=== PATIENT | male | born 1955 | race African-American/Black ===

== ENCOUNTER 2018-01-04 12:38 | Inpatient (IN) | payer BC ==
[~2018-01-04] VITALS: Ht 175.3 cm; Wt 127.9 kg
[2018-01-04] MEDS ORDERED: HYDROcodone/APAP 5 MG/325 MG (LORTAB) TAB PO PRN (15:15)
[2018-01-04] MEDS ORDERED: ONDANSETRON 4 MG (ZOFRAN) ORAL DISSOLVE TAB PO PRN (15:15)
--- NOTE | 2018-01-04 15:53 | Physical Therapy Evaluation ---
PT Evaluation-General Medical Diagnosis Admission Date 01/04/18 Medical Diagnosis: CVA Onset Date: Jan 01, 2018 Therapy Diagnosis Therapy Diagnosis: impaired mobility, strength, endurance, balance Precautions Precautions/Isolations: Standard Precautions Referral Physician: Kamar Reason for Referral: Evaluation/Treatment Medical History Additional Medical History PAST MEDICAL HISTORY: Hypertension, hyperlipidemia, type 2 diabetes mellitus. Case was discussed with Dr. Galvin by referring hospitalist this day. PAST SURGICAL HISTORY: Hernia repair, umbilicus, patella and shoulder surgery. Reviewed History: Yes Social History Home: Single Level Current Living Status: Alone Entry Into Home: Level Entry Prior/Core FIM Prior Level of Function Functional [place] Measure 0=Not Assessed/NA 4=Minimal Assistance 1=Total Assistance 5=Supervision or Setup 2=Maximal Assistance 6=Modified [place] 3=Moderate Assistance 7=Complete [place] Bed Mobility: 7 Transfers (B,C,W/C) (FIM): 7 Gait: 7 PT Evaluation-Current Subjective Patient just gets to the floor with family transport. Patient has no complaints of pain. Pt/Family Goals none stated Objective Patient Orientation: Person, Unable to Assess ROM/Strength ROM Lower Extremities WNL Strenght Lower Extremities 4+/5 gross bilateral lower extremities Neuromuscular (Tone, Coordination, Reflexes) NT Sensory Vision: Functional Hearing: Impaired Sensation Right Lower Extremit: Intact Sensation Left Lower Extremity: Intact Transfers Functional [place] Measure 0=Not Assessed/NA 4=Minimal Assistance 1=Total Assistance 5=Supervision or Setup 2=Maximal Assistance 6=Modified [place] 3=Moderate Assistance 7=Complete IndependenceIRFPAI Quality Coding Scale 6 Independent with activity with or without an assistive device 5 Patient requires set up or clean up by helper. Patient completes activity by themselves 4 Supervision or touching assist (CGA). [place] provide cues , steadying assist 3 The helper provides less than half the effort to complete the activity 2 The helper provides more than half the effort to complete the activity 1 Dependent. The helper does all the effort to complete an activity 7 Patient refused to complete or attempt activity 9 The patient did not perform the activity before the current illness or injury 88 Not attempted due to Medical conditions or safety concerns Transfers (B, C, W/C) (FIM): 5 Scootin Rollin Roll Left to Right (QC): 4 Supine to/from Sit: 5 Sit to/from Stand: 5 Sit to Lying (QC): 4 Lying to Sitting/Side of Bed(Q: 4 Sit to Stand (QC): 4 Chair/Bun-zz-Gxdgb Xfer(QC): 4 Car Transfer (QC): 4 Patient performs all bed mobility and transfers with SBA including car transfer. Gait Does the Patient Walk?: Yes Mode of Locomotion: Walk Anticipated Mode of Locomotion: Walk Gait (FIM): 5 Walk 10 feet (QC): 4 Walk 50 ft with 2 Turns(QC): 4 Walk 150 ft (QC): 4 Walking 10ft/uneven surface-QC: 4 Distance: 200' Gait Level of Assist: 5 Gait Persons Needed: 1 Gait Assistive Device: None Comments/Gait Description Patient can ambulate 200' without an assistive device with SBA, including 50' with at least 2 turns of 90 degrees and 10' over an uneven surface. Wheelchair Training Does the Pt Use a Wheelchair?: No Stairs Stairs (FIM): 2 #of Steps: 4 Level of Assist: 4 1 Step (curb) (QC): 4 4 Steps (QC): 4 Patient goes up and down the stairs quickly and needs cues to slow down. Balance Sitting Static: Normal Sitting Dynamic: Normal Standing Static: Good Standing Dynamic: Good Picking up an Object (QC): 4 (SBA) Assessment/Needs Patient has impaired speech, minor impairments in functional mobility post CVA. Rehab Potential: Good PT Short Term Goals Short Term Goals Time Frame: Jan 11, 2018 Transfers (B,C,W/C) (FIM): 6 Gait (FIM): 5 Gait Distance Comment: 500' Gait Level of Assist: 5 Gait Assistive Device: None PT Fdc Goals Fdc Goals PT Fdc Goals Time Frame: Jan 25, 2018 Transfers (B,C,W/C) (FIM): 7 Sit to Lying (QC): 6 Lying-Sitting on Side/Bed(QC): 6 Sit to Stand (QC): 6 Rollin Roll Left to Right (QC): 6 Chair/Eey-ro-Rfxeg Xfer(QC): 6 Car Transfer (QC): 6 Gait (FIM): 7 Distance: 1000' Walk 10 feet (QC): 6 Walk 10ft-Uneven Surface(QC): 6 Walk 50ft with 2 Turns (QC): 6 Walk 150 ft (QC): 6 Gait Assistive Device: None Stairs (FIM): 6 # of Steps: 12 1 Step (curb) (QC): 6 4 Steps (QC): 6 12 Steps (QC): 6 Picking up an Object (QC): 6 PT Plan Problem List Problem List: Activity Tolerance, Functional Strength, Safety, Balance, Gait, Transfer, Bed Mobility Treatment/Plan Treatment Plan: Continue Plan of Care Treatment Plan: Bed Mobility, Education, Functional Activity [place], Functional Strength, Group Therapy, Gait, Safety, Therapeutic Exercise, Transfers Treatment Duration: Jan 25, 2018 Frequency: At least 5 of 7 days/Wk (IRF) Estimated Hrs Per Day: 1.5 hours per day Patient and/or Family Agrees t: Yes Safety Risks/Education Patient Education: Gait Training, Transfer Techniques, Steps, Correct Positioning, Disease Process, Safety Issues Teaching Recipient: Patient Teaching Methods: Demonstration, Discussion Response to Teaching: Reinforcement Needed Discharge Recommendations Plan Patient will perform bed mobility and transfer training, balance and endurance training, functional strengthening, stair training, gait training, and education to improve functional mobility and independence at home. Therapy D/C Recommendations: Home w/ Family Support Time/GCodes Time In: 1530 Time Out: 1545 Total Billed Treatment Time: 30 Total Billed Treatment 1 visit EVL Phil' KIRSTIE ATKINS PT Jan 04, 2018 15:53
--- NOTE | 2018-01-04 16:14 | Occupational Therapy Eval ---
OT Evaluation-General/PLF Medical Diagnosis Admission Date 01/04/18 Medical Diagnosis: CVA Onset Date: Jan 01, 2018 Therapy Diagnosis Therapy Diagnosis: decreased self care Referral Physician: Kamar Medical History Pertinent Medical History: DM, HTN Additional Medical History hyperlipidemia, TIA Reviewed History: Yes Social History Home: Single Level Current Living Status: Alone Entry Into Home: Level Entry Pt states he will not be returning to his current living situation, but does not know where he will d/c to. ADL-Prior Level of Function ADL PLOF Comments Pt has some difficulty with expression, impacting ability to provide PLOF. Pt states he lives alone and is independent with self care and mobility. 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 OT Current Status Subjective Pt agreeable to therapy. No c/o pain. Mental Status/Objective Patient Orientation: Person Current Glasses/Contacts: Yes Hearing Aids: Yes Hand Dominance: Right Upper Extremity ROM Grossly WFL Upper Extremity Coordination Intact Upper Extremity Sensation Pt reports some numbness in right hand, states he has recently had trouble with carpal tunnel ADL-Treatment ADL-Current Pt in therapy gym, performs gait to room with supervision. Pt demonstrated ability to perform toilet transfer with supervision using grab bar. Pt participated in UE assessment while seated at EOB. Pt reports being tired, would like to go to bed after session. Transfer to EOB. Pt doffed shoes without assistance. Sit to supine with modified independence. Pt resting in bed with needs met after session. Functional [place] Measure 0=Not Assessed/NA 4=Minimal Assistance 1=Total Assistance 5=Supervision or Setup 2=Maximal Assistance 6=Modified [place] 3=Moderate Assistance 7=Complete IndependenceIRFPAI Quality Coding Scale 6 Independent with activity with or without an assistive device 5 Patient requires set up or clean up by helper. Patient completes activity by themselves 4 Supervision or touching assist (CGA). [place] provide cues , steadying assist 3 The helper provides less than half the effort to complete the activity 2 The helper provides more than half the effort to complete the activity 1 Dependent. The helper does all the effort to complete an activity 7 Patient refused to complete or attempt activity 9 The patient did not perform the activity before the current illness or injury 88 Not attempted due to Medical conditions or safety concerns Toilet/Commode Transfer (FIM): 5 Toilet Transfer (QC): 5 Education OT Patient Education: Rehab process Teaching Recipient: Patient Teaching Methods: Discussion Response to Teaching: Verbalize Understanding OT Short Term Goals Short Term Goals 1=Demonstrate adherence to instructed precautions during ADL tasks. 2=Patient will verbalize/demonstrate understanding of assistive devices/ modifications for ADL. 3=Patient will improve strength/tolerance for activity to enable patient to perform ADL's. OT Assisted Goals Assisted Goals Time Frame: Jan 18, 2018 Eating (FIM): 7 Eating (QC): 6 Groomin Oral Hygiene (QC): 6 Bathing(FIM): 6 Shower/Bathe Self (QC): 6 Upper Body Dressing(FIM): 7 Upper Body Dressing (QC): 6 Lower Body Dressing(FIM): 6 Lower Body Dressing (QC): 6 On/Off Footwear (QC): 6 Toileting(FIM): 7 Toileting Hygiene (QC): 6 Toilet/Commode Transfer(FIM): 7 Toilet/Commode Transfer (QC): 6 Shower Transfer(FIM): 6 Additional Goals: 2-Verbalize Understanding, 3-ImproveStrength/[place] 1=Demonstrate adherence to instructed precautions during ADL tasks. 2=Patient will verbalize/demonstrate understanding of assistive devices/ modifications for ADL. 3=Patient will improve strength/tolerance for activity to enable patient to perform ADL's. OT Education/Plan Problem List/Assessment Assessment: Dependent Transfers, Impaired I ADL's Pt to benefit from skilled OT intervention for ADL training, transfers, strengthening, and safety education to increase level of independence and allow safe discharge. Discharge Recommendations Plan/Recommendations: Continue POC Treatment Plan/Plan of Care Treatment,Training & Education: Yes Patient would benefit from OT for education, treatment and training to promote independence in ADL's, mobility, safety and/or upper extremity function for ADL' s. Plan of Care: ADL Retraining, Functional Mobility, Group Exercise/Act as Ind, UE Funct Exercise/Act Treatment Duration: Jan 18, 2018 Frequency: At least 5 of 7 days/Wk (IRF) Estimated Hrs Per Day: 1.5 hours per day Agreement: Yes Rehab Potential: Good Time/GCodes Start Time: 15:45 Stop Time: 16:00 Total Time Billed (hr/min): 15 Billed Treatment Time 1 visit, ELLIOTT(15minutes) MICHELLE BENAVIDEZ OT Jan 04, 2018 16:14
[2018-01-04] MEDS ORDERED: INFLUENZA TRIvalent 2017-2018 0.5 ML/45 MCG SYR IM ONE (16:45)
[2018-01-04] MEDS ORDERED: PNEUMOCOCCAL VACCINE 25 MCG/0.5 ML VIAL IM ONE (16:45)
[2018-01-04 16:47] VITALS: BP 121/69
[2018-01-04] MEDS: metFORMIN 500 MG (GLUCOPHAGE) TAB PO SCH (17:46)
[2018-01-04] MEDS: IBUPROFEN 800 MG (MOTRIN) TAB PO SCH ×2 (17:46→23:21)
[2018-01-04 18:32] VITALS: BP 162/84
--- NOTE | 2018-01-04 19:18 | PM&R Post Admission Assessment ---
Post Admission Physician Asses The preadmission screen agrees with the post admission assessment that the patient is a good candidate for inpatient rehabilitation. The patient will have a comprehensive program of inpatient rehabilitation with a goal of maximizing level of functional independence prior to discharge home with family and HHC. The patient will have PT/OT ninety minutes per day, each discipline, five days a week for gait, strengthening, conditioning, balance, ADLs, any patient/family/caregiver training as necessary. Speech therapy to do cognitive,speech and swallow assessment and treat as indicated. Rehabilitation nursing to assist with bowel, bladder, skin, wound care, medication administration, pain management. Director Vaccine to assist with discharge planning, community reentry. SCD's for DVT prophylaxis. He appears to be well motivated to participate in three hours of therapy a day. He should be able to tolerate three hours of therapy a day from a medical standpoint. He should benefit from the three hours of therapy a day. He has a reasonable discharge plan, reasonable discharge rehabilitation goals and a supportive family. He has various comorbidities that need to be closely monitored with medications and treatments adjusted on a daily basis as needed. These include: HTN HLP Type2 DM Barriers to discharge for this patient who had been independent prior to this are for him to be modified independent to supervision for ADLs and mobility skills prior to discharge home with family and HHC, so as to lessen the burden of the caregivers. 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 Fall 2. Fracture 3. DVT 4. Pulmonary embolism 5. Recurrent stroke 6. Skin breakdown 7. Contractures 8. Poorly controlled pain 9. Urinary retention 10. UTI 11. Respiratory infection 12. Aspiration 13. Poorly controlled HTN 14. Poorly controlled DM Estimated Length of Stay: 18 days Prognosis: Rehab prognosis appears good for goal of discharge home with family and HHC modified independent to supervision for ADLs and mobility skills. SOFI CONNELLY MD Jan 04, 2018 19:18
--- NOTE | 2018-01-04 20:20 | HISTORY AND PHYSICAL ---
DATE OF SERVICE: CHIEF COMPLAINT: Difficulty with speech. HISTORY OF PRESENT ILLNESS: The patient is a 62-year-old male, who lives in [place], [place] and was living independently and working full time paramedic, who was admitted to [facility] on 01/01/2018 due to difficulty with speech and some confusion. He was found to have an acute stroke in the left middle cerebral artery distribution and DON territory as per MRI and CTA imaging with trace parenchymal hemorrhage. The patient was admitted to hospitalist service and seen by neurology and neurosurgery. The patient was started on a statin. Echocardiogram with bubble study revealed an intact ejection fraction with no major valvular pathology. Neurology recommended starting the patient on aspirin 81 mg per day a week after discharge as the benefits outweighed the risk for further bleed. It was also recommended that he have a sleep study. Currently, he is min assist for transfers and gait with handheld assist. He has mildly impaired dynamic standing balance. He has expressive aphasia. He is able to follow simple 1 step commands with extra time. PAST MEDICAL HISTORY: Hypertension, hyperlipidemia, type 2 diabetes mellitus. Case was discussed with Dr. Galvin by referring hospitalist this day. PAST SURGICAL HISTORY: Hernia repair, umbilicus, patella and shoulder surgery. ALLERGIES: No known medication allergies. FAMILY HISTORY: Noncontributory. SOCIAL HISTORY: Essentially as per above. REVIEW OF SYSTEMS: Ten-point review of systems significant for difficulty with speech, impaired balance. He reports some numbness in the right hand, which he relates to carpal tunnel syndrome. MEDICATIONS: Lipitor 40 mg p.o. at bedtime, ibuprofen 800 mg p.o. q.6 hours p.r.n., metformin 500 mg p.o. b.i.d., hydrocodone APAP 5 one tablet p.o. q.4 hours p.r.n. moderate pain, Zofran 4 mg p.o. q.6 hours p.r.n. nausea or vomiting. PHYSICAL EXAMINATION: GENERAL: Significant for a somewhat obese male appearing his stated age, lying in bed in no acute distress. His BMI is 41.7. VITAL SIGNS: He is afebrile, pulse is 81, respirations 16, blood pressure 162/84, O2 sat 99% on room air. HEENT: Vision and hearing appeared grossly intact. No oral lesions noted. Speech, he has expressive aphasia. NECK: Supple without mass. HEART: Regular rhythm. LUNGS: Chest is clear. ABDOMEN: Soft, nontender, bowel sounds present. EXTREMITIES: No limb edema. No calf tenderness. MUSCULOSKELETAL: He has functional active range of motion in all 4 extremities. NEUROLOGIC: He has mildly impaired hearing. Strength is 4+/5 grossly in all four limbs. Sensation is grossly intact to touch. He has expressive aphasia as per above. Difficult to assess cognition, but is able to follow simple commands with extra time. IMPRESSION: 1. Acute left middle cerebral artery distribution stroke with resulting gait imbalance and expressive aphasia. 2. Hypertension, controlled with medication. 3. Hyperlipidemia, on statin. 4. Type 2 diabetes mellitus, on metformin. PLAN: The patient will have a comprehensive program of inpatient rehabilitation with the goal of maximizing level of functional independence prior to discharge home with home health care.He is to have followup with [facility] in [place] in 1 week , so I assume that he is a . The patient will have PT, OT 5 days a week, 90 minutes per session each discipline with plan of care as per post-admission physician evaluation. Please see that separate document for details Speech therapy to do a swallow, speech, cognitive eval and treat as indicated 5 times a week for 30 to 45 minutes per day for 2 weeks. Rehabilitation nursing to assist with bowel, bladder, skin care, medication administration, pain management. patient services clerk to assist with discharge planning and community reentry. Therapy with cardiac and fall precautions. Monitor Accu-Cheks and blood pressure and adjust medications as appropriate. Routine admission labs. ESTIMATED LENGTH OF STAY: 10 to 14 days. PROGNOSIS: Rehab prognosis appears good for goal of discharging home with home health care modified independent to supervision for ADLs, mobility skills. DIET: Carb consistent. CODE STATUS: Full code. Job ID: [id number] DocumentID: [id number] Dictated Date: 01/04/2018 19:30:03 Tub Wash Operator Date: 01/04/2018 20:19:30 Dictated By: SOFI GALVIN MD [facility]
[2018-01-04] MEDS: ATORVASTATIN 40 MG (LIPITOR) TABLET PO SCH (21:18)
[2018-01-05 05:39] LABS: HEMOGLOBIN 14.1 G/DL (13.3-17.7); RED BLOOD COUNT 4.49 10^6/uL (4.35-5.85); WHITE BLOOD COUNT 7.8 10^3/uL (4.3-11.0)
[2018-01-05 06:00] VITALS: BP 148/94
[2018-01-05 06:04] LABS: ALANINE AMINOTRANSFERASE 16 U/L (0-55); ALBUMIN 3.6 GM/DL (3.2-4.5); ALKALINE PHOSPHATASE 50 U/L (40-136); BILIRUBIN,TOTAL 0.5 MG/DL (0.1-1.0); BUN/CREATININE RATIO 13; CALCIUM 8.9 MG/DL (8.5-10.1); CARBON DIOXIDE 25 MMOL/L (21-32); CHLORIDE 106 MMOL/L (98-107); CREATININE SERUM 0.86 MG/DL (0.60-1.30); GFR ESTIMATED > 60; GLUCOSE 128 MG/DL (70-105); POTASSIUM 4.1 MMOL/L (3.6-5.0); SODIUM 138 MMOL/L (135-145)
[2018-01-05] MEDS: metFORMIN 500 MG (GLUCOPHAGE) TAB PO SCH ×2 (06:31→17:16)
[2018-01-05] MEDS: IBUPROFEN 800 MG (MOTRIN) TAB PO SCH ×4 (06:31→23:51)
--- NOTE | 2018-01-05 08:51 | Physical Therapy Daily Note ---
PT Daily Note-Current Subjective Pt. furrows his brow and states hes not sure why he is being seen by PT b/c he "just needs someone to work with me on my speech". Pt. also indicates he wears a hearing aide on the left ear and needs a new battery. States he can hear decent on his right . States he works in [place] at [employer]. Agrees to Rx after some education and explanation Pain Numeric Pain Scale: 0-No Pain Mental Status Patient Orientation: Person, Place, Time, Situation, Normal For Age Attachments: Other-See Comments Transfers Functional [place] Measure 0=Not Assessed/NA 4=Minimal Assistance 1=Total Assistance 5=Supervision or Setup 2=Maximal Assistance 6=Modified [place] 3=Moderate Assistance 7=Complete IndependenceIRFPAI Quality Coding Scale 6 Independent with activity with or without an assistive device 5 Patient requires set up or clean up by helper. Patient completes activity by themselves 4 Supervision or touching assist (CGA). [place] provide cues , steadying assist 3 The helper provides less than half the effort to complete the activity 2 The helper provides more than half the effort to complete the activity 1 Dependent. The helper does all the effort to complete an activity 7 Patient refused to complete or attempt activity 9 The patient did not perform the activity before the current illness or injury 88 Not attempted due to Medical conditions or safety concerns Transfers (B, C, W/C) (FIM): 7 Scootin Rollin Roll Left to Right (QC): 7 Supine to/from Sit: 7 Sit to/from Stand: 7 Sit to Lying (QC): 7 Sit to Stand (QC): 7 Chair/Wjy-si-Qbcwv Xfer(QC): 7 Bed to/from Chair: 7 Car Transfer (QC): 7 floor TRF indep Gait Training Does the Patient Walk?: Yes Gait (FIM): 7 Distance (FIM): 3=150 ft (200x2) Walk 10 feet (QC): 7 Walk 50 ft with 2 Turns(QC): 7 Walk 150 ft (QC): 7 Walking 10ft/uneven surface-QC: 7 Gait Level of Assist: 7 Gait Persons Needed: 0 Gait Assistive Device: None side stepping at rapid pace left and right , retro and braiding left and right, some difficulty with braiding to weft that appears possible slight coordination issue, but NO LOB Stair Training Stair Training: Handrails/: No handrail Stairs (FIM): 7 #of Steps: 12 1 Step (curb) (QC): 7 4 Steps (QC): 7 12 Steps (QC): 7 Stairs: Pattern: Reciprocal Level of Assist: 7 Balance Picking up an Object (QC): 7 Special Test Comments RAMON tested at 56/56 Exercises Supine Ex: Bridging, Rolling, Scooting Supine Reps: 5 Standing: Dynamic Reaching Ex Neuromuscular see above Treatments quadruped, crawling and tall on knees with perturbations with no LOB Assessment Current Status: Excellent Progress no real communication issues . Pt. responded accurately 100% of time, often slowly, unless he could not hear this ASBESTOS MICROSCOPIST clearly secondary to hearing loss PT Short Term Goals Short Term Goals Time Frame: Jan 11, 2018 Transfers (B,C,W/C) (FIM): 6 Gait (FIM): 5 Gait Distance Comment: 500' Gait Level of Assist: 5 Gait Assistive Device: None PT Steeping Press Operator Goals Steeping Press Operator Goals PT Group Home Goals Time Frame: Jan 25, 2018 Transfers (B,C,W/C) (FIM): 7 Sit to Lying (QC): 6 Lying-Sitting on Side/Bed(QC): 6 Sit to Stand (QC): 6 Rollin Roll Left to Right (QC): 6 Chair/Zcl-dg-Hrvsj Xfer(QC): 6 Car Transfer (QC): 6 Gait (FIM): 7 Distance: 1000' Walk 10 feet (QC): 6 Walk 10ft-Uneven Surface(QC): 6 Walk 50ft with 2 Turns (QC): 6 Walk 150 ft (QC): 6 Gait Assistive Device: None Stairs (FIM): 6 # of Steps: 12 1 Step (curb) (QC): 6 4 Steps (QC): 6 12 Steps (QC): 6 Picking up an Object (QC): 6 PT Plan Treatment/Plan Treatment Plan: Continue Plan of Care Treatment Plan: Bed Mobility, Education, Functional Activity [place], Functional Strength, Group Therapy, Gait, Safety, Therapeutic Exercise, Transfers Treatment Duration: Jan 25, 2018 Frequency: At least 5 of 7 days/Wk (IRF) Estimated Hrs Per Day: 1.5 hours per day Patient and/or Family Agrees t: Yes Safety Risks/Education Patient Education: Gait Training, Transfer Techniques, Steps, Correct Positioning, Safety Issues Teaching Recipient: Patient Teaching Methods: Demonstration, Discussion Response to Teaching: Verbalize Understanding, Return Demonstration discussed CVA and speech etc, expectations of rehab etc Time/GCodes Time In: 800 Time Out: 845 Total Billed Treatment Time: 45 Total Billed Treatment 1,GT10m,NM35m G Codes Necessary: LAKISHA Craft ASBESTOS MICROSCOPIST Jan 05, 2018 08:51
--- NOTE | 2018-01-05 09:18 | PM & R (SOAP) Progress Note ---
Subjective Time Seen by Provider: 08:35 Subjective/Events-last exam Patient was seen in his room this AM Patient CGA for gait without gait aide.Primary deficit is speech ST to see re aphasia Review of Systems Neurological: Change in speech Objective Exam Last Set of Vital Signs Vital Signs Date Time Temp Pulse Resp B/P (MAP) Pulse Ox O2 Delivery O2 Flow Rate FiO2 01/05/18 06:00 96.4 61 18 148/94 (112) 100 Room Air Capillary Refill : I&O Intake and Output 01/05/18 00:00 Intake Total 200 ml Balance 200 ml Intake Oral 200 ml # Voids 1 Daily Weight Change No General: Alert, Cooperative, No Acute Distress HEENT: Atraumatic, PERRLA, EOMI, Mucous Memb Moist/[place] Neck: Supple, No JVD Lungs: Clear to Auscultation Heart: Regular Rate Abdomen: Normal Bowel Sounds, Soft, No Tenderness Extremities: No Edema Neuro: Other (Expressive aphasia) Results Lab Laboratory Tests 01/04/18 16:44: Glucometer 163H 01/05/18 05:05: Glucometer 120H 01/05/18 05:18: White Blood Count 7.8, Red Blood Count 4.49, Hemoglobin 14.1, Hematocrit 40, Mean Corpuscular Volume 88, Mean Corpuscular Hemoglobin 31, Mean Corpuscular Hemoglobin Concent 36, Red Cell Distribution Width 12.0, Platelet Count 261, Mean Platelet Volume 9.0, Sodium Level 138, Potassium Level 4.1, Chloride Level 106, Carbon Dioxide Level 25, Anion Gap 7, Blood Urea Nitrogen 11, Creatinine 0.86, Estimat Glomerular Filtration Rate > 60, BUN/Creatinine Ratio 13, Glucose Level 128H, Calcium Level 8.9, Total Bilirubin 0.5, Aspartate Amino Transf (AST/ SGOT) 16, Alanine Aminotransferase (ALT/SGPT) 16, Alkaline Phosphatase 50, Total Protein 6.0L, Albumin 3.6 Assessment/Plan Assessment Left MCA distribution stroke with aphasia and gait imbalance HTN controlled HLP on statin Type 2 DM on Metformin Plan Continue PT/OT ST to assess Monitor accucheks and adjust meds as needed Team Conference next week 01-10-18 SW to check on home support system patient has SOFI CONNELLY MD Jan 05, 2018 09:18
[2018-01-05] MEDS ORDERED: AMLO10TA2 PO (10:46)
[2018-01-05] MEDS ORDERED: ASPI-999 PO (10:46)
[2018-01-05] MEDS ORDERED: METF500T8 PO (10:46)
--- NOTE | 2018-01-05 11:08 | Occupational Ther Daily Note ---
OT Current Status-Daily Note Subjective Pt sitting in chair, agrees to treatment. Pt has no c/o pain. Mental Status/Objective Functional [place] Measure 0=Not Assessed/NA 4=Minimal Assistance 1=Total Assistance 5=Supervision or Setup 2=Maximal Assistance 6=Modified [place] 3=Moderate Assistance 7=Complete Door ADL-Treatment Pt agreeable to shower this morning. Pt retrieved clothing from closet without assistance. Gait to restroom without assistive device, no LOB noted. Pt completed toileting standing at toilet with modified independence. Doff clothing without assistance. Pt transferred to shower with modified independence. Pt able to complete bathing tasks after set up. Don shirt with modified independence. Pt donned pants with modified independence. Don shoes and socks without assistance. Pt stood at sink to brush teeth with modified independence. Functional [place] Measure 0=Not Assessed/NA 4=Minimal Assistance 1=Total Assistance 5=Supervision or Setup 2=Maximal Assistance 6=Modified [place] 3=Moderate Assistance 7=Complete IndependenceIRFPAI Quality Coding Scale 6 Independent with activity with or without an assistive device 5 Patient requires set up or clean up by helper. Patient completes activity by themselves 4 Supervision or touching assist (CGA). [place] provide cues , steadying assist 3 The helper provides less than half the effort to complete the activity 2 The helper provides more than half the effort to complete the activity 1 Dependent. The helper does all the effort to complete an activity 7 Patient refused to complete or attempt activity 9 The patient did not perform the activity before the current illness or injury 88 Not attempted due to Medical conditions or safety concerns Grooming (FIM): 6 Oral Hygiene (QC): 6 Bathing (FIM): 5 Shower/Bathe Self (QC): 5 Upper Body (FIM): 6 Upper Body Dressing (QC): 6 Lower Body Dressing (FIM): 6 Lower Body Dressing (QC): 6 On/Off Footwear (QC): 6 Toileting (FIM): 6 Shower Transfer(FIM): 6 Other Treatment Gait to therapy gym without assistive device, no LOB noted. Arm bike [id number] to increase overall strength and activity tolerance needed for ADLs and transfers. Pt completed task with moderate resistance and steady pace. No rest breaks needed. Pt completed grooved pegboard fine motor task with right hand to increase coordination skills. Pt occasionally drops peg, but is able to complete task without assistance. Pt returned to room, sitting in chair with needs met after session. OT Short Term Goals Short Term Goals Transfers (B,C,W/C) (FIM): 6 1=Demonstrate adherence to instructed precautions during ADL tasks. 2=Patient will verbalize/demonstrate understanding of assistive devices/ modifications for ADL. 3=Patient will improve strength/tolerance for activity to enable patient to perform ADL's. OT Fci Goals Fci Goals Time Frame: Jan 18, 2018 Eating (FIM): 7 Eating (QC): 6 Groomin Oral Hygiene (QC): 6 Bathing(FIM): 6 Shower/Bathe Self (QC): 6 Upper Body Dressing(FIM): 7 Upper Body Dressing (QC): 6 Lower Body Dressing(FIM): 6 Lower Body Dressing (QC): 6 On/Off Footwear (QC): 6 Toileting(FIM): 7 Toileting Hygiene (QC): 6 Toilet/Commode Transfer(FIM): 7 Toilet/Commode Transfer (QC): 6 Shower Transfer(FIM): 6 Additional Goals: 2-Verbalize Understanding, 3-ImproveStrength/[place] 1=Demonstrate adherence to instructed precautions during ADL tasks. 2=Patient will verbalize/demonstrate understanding of assistive devices/ modifications for ADL. 3=Patient will improve strength/tolerance for activity to enable patient to perform ADL's. OT Education/Plan Discharge Recommendations Plan/Recommendations: Continue POC Treatment Plan/Plan of Care Patient would benefit from OT for education, treatment and training to promote independence in ADL's, mobility, safety and/or upper extremity function for ADL' s. Plan of Care: ADL Retraining, Functional Mobility, Group Exercise/Act as Ind, UE Funct Exercise/Act Treatment Duration: Jan 18, 2018 Frequency: At least 5 of 7 days/Wk (IRF) Estimated Hrs Per Day: 1.5 hours per day Agreement: Yes Rehab Potential: Good Time/GCodes Start Time: 09:00 Stop Time: 10:00 Total Time Billed (hr/min): 60 Billed Treatment Time 1 visit, ADLx3(40minutes), EX(20minutes) MICHELLE BENAVIDEZ OT Jan 05, 2018 11:08
--- NOTE | 2018-01-05 11:38 | ST Cognitive Linguistic Eval ---
Speech Evaluation-General Medical Diagnosis CVA Onset Date: Jan 01, 2018 Therapy Diagnosis Therapy Diagnosis: Moderate Expressive Aphasia, Mild Receptive Aphasia Precautions Precautions/Isolations: Standard Precautions Referral Referring Physician: Dr. Jacek Galvin Reason for Referral: Evaluation/Treatment Speech and Language Evaluation Medical History Pertinent Medical History: DM, HTN Current History The patient was recently admitted to [facility] from an outside facility following a left MCA stroke. Reviewed History: Yes Social History Current Living Status: Alone Speech PLF-Current Status Prior Level of Function The patient denied prior challenges with speech, language or cognition. Subjective The patient was seated upright in chair upon entrance. The patient greeted the clinician appropriately and was agreeable to participation in the speech and language evaluation. To note, the patient complete route, common conversation (greetings, etc.) appropriately. Language Eval: Auditory Comprehends Simple Yes/No Ques: Mild (The patient is able to respond accurately to simple yes and no, however, the patient requires increased prompting and time to respond accurately to complex yes and no.) Indent/Objects Multiple Knowles: Functional Ident/Pics in Multiple Knowles: Functional Follows 1-Step Commands: Functional Follows Complex Directions: Moderate (The patient demonstrates moderate difficulty following simple, multi-step commands. ) Follows General Conversations: Mild To note, the patient does have a hearing deficit. The patient hears better on the right. Language Eval: Verbal Language Completes Spontaneous Greeting: Functional Produces Auto, Serial Info: Functional Imitates Simple Words/Phrases: Functional Word Finding: Moderate Requests Basic Needs: Functional States Basic Personal Info: Moderate (The patient demonstrates difficulty stating date of . With moderate clinician verbal cueing, the patient is able to accurately identify the year of his , as well as, his age.) Expresses Complex Ideas: Severe Language Evaluation: Reading Comprehends Single Nouns: Mild Language Evaluation: Writing Writes Personal Information: Mild (The patient is able to write his name on this date. Per patient, this is something he could not accomplish the day prior. ) Cognitive Patient Orientation The patient is oriented to month, day of week, and year, however, due to paraphasia and word-finding requires information to be provided in yes and no format, as well as, initial phonemic cues. Objective Cognitive Domain Attention: WNL Memory: Mild Problem Solving: Functional Clock Drawing Severity Rating: Severe (The patient was unable to draw a clock for the clinician and stated, "I don't know how to write the numbers.") Objective Impression The patient demonstrated moderate expressive aphasia characterized by word- finding deficits, as well as, mild receptive aphasia. At this time, the patient additionally has difficulty writing to simple dictation, as well as, automatic sequences. Communication/Social Cognition Comprehension: 3 Expression: 2 Social Interaction: 6 Problem Solvin Memory: 4 Speech Patient Assess Expression of Ideas/Wants: Rarely/Never (1) Understanding [place] Content: Sometimes Understands(2) Brief Interview-Mental Status: Yes Repetition of Three Words: Three (3) Temporal Orientation: Year: Correct (3) Temporal Orientation: Month: Accurate within 5 days(2) Temporal Orientation: Day: Correct (1) Recall : Wear to say "Sock": Yes,after cueing (1) Recall : Color: Yes, no cue required (2) Recall : Bed: Yes, no cue required (2) Speech Short Term Goals Short Term Goals Short Term Goals 1. The patient will copy short phrases with mild clinician verbal prompting. 2. The patient will identify letters and numbers (1-10) with 80% accuracy and mild clinician verbal prompting. 3. The patient will state simple orientation information with 80% accuracy and mild clinician verbal prompting. Time Frame-STG: One Week Speech Retirement Goals Retirement Goals 1. The patient will demonstrate improved expressive communication for increased safety and function with ADL's. Time Frame: Two Weeks Comprehension: 4 Expression: 3 Social Interaction: 6 Problem Solvin Memory: 4 Speech-Plan Treatment Plan Speech Therapy Treatment Plan: Continue Plan of Care Continue skilled speech pathology to target functional communication ( expressive and receptive). Treatment Duration: Jan 19, 2018 Frequency: 5 times per week Estimated Hrs Per Day: .5 hour per day Rehab Potential: Fair Safety Risks/Education Teaching Recipient: Patient Teaching Methods: Discussion Response to Teaching: Verbalize Understanding Education Topics Provided: The patient was encouraged to practice writing his name, as well as, reading aloud. Results and recommendations were shared and discussed with the patient. Time Speech Therapy Time In: 10:00 Speech Therapy Time Out: 10:30 Total Billed Time: 30 Billed Treatment Time 1CHRISTINSUNSHINECATHY SHAH Jan 05, 2018 11:38
--- NOTE | 2018-01-05 14:39 | Therapy Group Daily Note ---
Therapy Daily Group Note Patient Education Topic Other List Below (the 5 senses) Other/Notes Pt. participated in PT OT group this date. Pts. introduced selves and shared their favorite smell, taste or sight. Pt. amb[place] [facility] Pts. were educated RE: Acute Rehab purpose and practices . Pts. contributed during education re: the 5 senses, how they diminish, how to manage this as well as activities in stereognition (items in pillow case to feel and name) and sound recognition (recordings of different sounds to ID). Pt. to room to bed after group with noonan at hand Start Time: 13:00 Stop Time: 14:15 Total Billed Treatment Time: 75 Total Billed Treatment 1,GRP LAKISHA VELAZQUEZ WAD LUBRICATOR Jan 05, 2018 14:39
[2018-01-05] MEDS ORDERED: DICL75TA2 PO (15:00)
[2018-01-05 18:10] VITALS: BP 136/74
[2018-01-05] MEDS: ATORVASTATIN 40 MG (LIPITOR) TABLET PO SCH (20:33)
[2018-01-06 05:25] VITALS: BP 143/75
[2018-01-06] MEDS: IBUPROFEN 800 MG (MOTRIN) TAB PO SCH ×4 (06:19→19:47)
[2018-01-06] MEDS: metFORMIN 500 MG (GLUCOPHAGE) TAB PO SCH ×2 (06:19→17:24)
--- NOTE | 2018-01-06 10:44 | Physical Therapy Progress Note ---
Therapy Progress Note Patient is up independently in room and lobby area. PT requested patient participate with PT with exercise and outside gait training, however, patient adamantly declined stating, "I want to take a shower and I can walk by myself." PT attempted to encourage patient to participate, however, continued to decline therapy on this date. RN notified. 1 ref PARTH ROJO PT Jan 06, 2018 10:44
--- NOTE | 2018-01-06 12:52 | Occupational Ther Daily Note ---
OT Current Status-Daily Note Subjective Pt seen in room, up in bed, agreeable to OT. No pain mentioned. Appearance Alert, cooperative. Mental Status/Objective Functional [place] Measure 0=Not Assessed/NA 4=Minimal Assistance 1=Total Assistance 5=Supervision or Setup 2=Maximal Assistance 6=Modified [place] 3=Moderate Assistance 7=Complete [place] ADL-Treatment Functional [place] Measure 0=Not Assessed/NA 4=Minimal Assistance 1=Total Assistance 5=Supervision or Setup 2=Maximal Assistance 6=Modified [place] 3=Moderate Assistance 7=Complete IndependenceIRFPAI Quality Coding Scale 6 Independent with activity with or without an assistive device 5 Patient requires set up or clean up by helper. Patient completes activity by themselves 4 Supervision or touching assist (CGA). [place] provide cues , steadying assist 3 The helper provides less than half the effort to complete the activity 2 The helper provides more than half the effort to complete the activity 1 Dependent. The helper does all the effort to complete an activity 7 Patient refused to complete or attempt activity 9 The patient did not perform the activity before the current illness or injury 88 Not attempted due to Medical conditions or safety concerns Other Treatment Pt has difficulty with word finding and asked about speech therapy. He said, "Now I understand why she gave me...homework [OT cues for this word)". Pt walked to and from gym without AD or assistance (at least 300 feet). In gym, pt did 15 reps bilat UE exercise with 3# weight. He needed some visual and occasional physical assistance to do the exercises correctly. He was generally able to track repetitions himself. Exercises for coordination and strengthening , as well as problem solving and motor planning. At end of tx, he reported that he liked doing the exercises. Pt returned to room, up in recliner, all needs met. Education OT Patient Education: Exercise program, Purpose of tx/functional activities Teaching Recipient: Patient Teaching Methods: Demonstration, Discussion Response to Teaching: Return Demonstration, Reinforcement Needed OT Short Term Goals Short Term Goals Transfers (B,C,W/C) (FIM): 6 1=Demonstrate adherence to instructed precautions during ADL tasks. 2=Patient will verbalize/demonstrate understanding of assistive devices/ modifications for ADL. 3=Patient will improve strength/tolerance for activity to enable patient to perform ADL's. OT Alf Goals Alf Goals Time Frame: Jan 18, 2018 Eating (FIM): 7 Eating (QC): 6 Groomin Oral Hygiene (QC): 6 Bathing(FIM): 6 Shower/Bathe Self (QC): 6 Upper Body Dressing(FIM): 7 Upper Body Dressing (QC): 6 Lower Body Dressing(FIM): 6 Lower Body Dressing (QC): 6 On/Off Footwear (QC): 6 Toileting(FIM): 7 Toileting Hygiene (QC): 6 Toilet/Commode Transfer(FIM): 7 Toilet/Commode Transfer (QC): 6 Shower Transfer(FIM): 6 Comprehension(FIM): 4 Expression (FIM): 3 Social Interaction(FIM): 6 Problem Solving(FIM): 4 Memory(FIM): 4 Additional Goals: 2-Verbalize Understanding, 3-ImproveStrength/[place] 1=Demonstrate adherence to instructed precautions during ADL tasks. 2=Patient will verbalize/demonstrate understanding of assistive devices/ modifications for ADL. 3=Patient will improve strength/tolerance for activity to enable patient to perform ADL's. OT Education/Plan Discharge Recommendations Plan/Recommendations: Continue POC Treatment Plan/Plan of Care Patient would benefit from OT for education, treatment and training to promote independence in ADL's, mobility, safety and/or upper extremity function for ADL' s. Plan of Care: ADL Retraining, Functional Mobility, Group Exercise/Act as Ind, UE Funct Exercise/Act Treatment Duration: Jan 18, 2018 Frequency: At least 5 of 7 days/Wk (IRF) Estimated Hrs Per Day: 1.5 hours per day Agreement: Yes Rehab Potential: Fair Time/GCodes Start Time: 11:30 Stop Time: 12:00 Total Time Billed (hr/min): 30 Billed Treatment Time visit, 30 minutes exercise ENA RODRIGUEZ OT Jan 06, 2018 12:52
[2018-01-06 17:46] VITALS: BP 156/83
[2018-01-06] MEDS: ATORVASTATIN 40 MG (LIPITOR) TABLET PO SCH (20:27)
[2018-01-07 05:46] VITALS: BP 134/83
[2018-01-07] MEDS: metFORMIN 500 MG (GLUCOPHAGE) TAB PO SCH ×2 (06:06→16:11)
[2018-01-07] MEDS: IBUPROFEN 800 MG (MOTRIN) TAB PO SCH ×4 (12:37→19:58)
[2018-01-07 17:49] VITALS: BP 150/79
[2018-01-07] MEDS: ATORVASTATIN 40 MG (LIPITOR) TABLET PO SCH (19:55)
[2018-01-08 05:33] VITALS: BP 134/81
[2018-01-08] MEDS: metFORMIN 500 MG (GLUCOPHAGE) TAB PO SCH ×2 (06:02→16:47)
[2018-01-08] MEDS: IBUPROFEN 800 MG (MOTRIN) TAB PO SCH ×3 (09:54→23:24)
--- NOTE | 2018-01-08 09:57 | Occupational Ther Daily Note ---
OT Current Status-Daily Note Subjective Pt alert, sitting in recliner. Pt agreed to therapy. No c/o pain at this time. Pt adamantly refused to complete arm bike and OLIVIER had a difficult time getting pt to realize that he did not have to do arm bike. When pt realized that he was doing other things for therapy he was agreeable to therapy. Mental Status/Objective Patient Orientation: Person, Place, Time, Situation Functional [place] Measure 0=Not Assessed/NA 4=Minimal Assistance 1=Total Assistance 5=Supervision or Setup 2=Maximal Assistance 6=Modified [place] 3=Moderate Assistance 7=Complete [place] ADL-Treatment Pt had already cleaned up and dressed prior to OT. Pt declined any ADLs. Functional [place] Measure 0=Not Assessed/NA 4=Minimal Assistance 1=Total Assistance 5=Supervision or Setup 2=Maximal Assistance 6=Modified [place] 3=Moderate Assistance 7=Complete IndependenceIRFPAI Quality Coding Scale 6 Independent with activity with or without an assistive device 5 Patient requires set up or clean up by helper. Patient completes activity by themselves 4 Supervision or touching assist (CGA). [place] provide cues , steadying assist 3 The helper provides less than half the effort to complete the activity 2 The helper provides more than half the effort to complete the activity 1 Dependent. The helper does all the effort to complete an activity 7 Patient refused to complete or attempt activity 9 The patient did not perform the activity before the current illness or injury 88 Not attempted due to Medical conditions or safety concerns Other Treatment Pt completed 15 UE exercises with resistance, 1 set 30 reps each. Exercises completed to increase UE gross motor, pinch/group controller and fine motor for daily functional tasks. Pt tolerated exercises well, stated that his UE were fatigued after therapy. 3# wt for hand/wrist exercises, 6# wt for UE gross motor exercises and medium resistance theraband. After therapy, pt sitting in recliner in room. Pt up ad kenya in room. All needs met in room. OT Short Term Goals Short Term Goals Transfers (B,C,W/C) (FIM): 6 1=Demonstrate adherence to instructed precautions during ADL tasks. 2=Patient will verbalize/demonstrate understanding of assistive devices/ modifications for ADL. 3=Patient will improve strength/tolerance for activity to enable patient to perform ADL's. OT Group Home Goals Cardiovascular Surgeon Goals Time Frame: Jan 18, 2018 Eating (FIM): 7 Eating (QC): 6 Groomin Oral Hygiene (QC): 6 Bathing(FIM): 6 Shower/Bathe Self (QC): 6 Upper Body Dressing(FIM): 7 Upper Body Dressing (QC): 6 Lower Body Dressing(FIM): 6 Lower Body Dressing (QC): 6 On/Off Footwear (QC): 6 Toileting(FIM): 7 Toileting Hygiene (QC): 6 Toilet/Commode Transfer(FIM): 7 Toilet/Commode Transfer (QC): 6 Shower Transfer(FIM): 6 Comprehension(FIM): 4 Expression (FIM): 3 Social Interaction(FIM): 6 Problem Solving(FIM): 4 Memory(FIM): 4 Additional Goals: 2-Verbalize Understanding, 3-ImproveStrength/[place] 1=Demonstrate adherence to instructed precautions during ADL tasks. 2=Patient will verbalize/demonstrate understanding of assistive devices/ modifications for ADL. 3=Patient will improve strength/tolerance for activity to enable patient to perform ADL's. OT Education/Plan Discharge Recommendations Plan/Recommendations: Continue POC Treatment Plan/Plan of Care Patient would benefit from OT for education, treatment and training to promote independence in ADL's, mobility, safety and/or upper extremity function for ADL' s. Plan of Care: ADL Retraining, Functional Mobility, Group Exercise/Act as Ind, UE Funct Exercise/Act Treatment Duration: Jan 18, 2018 Frequency: At least 5 of 7 days/Wk (IRF) Estimated Hrs Per Day: 1.5 hours per day Agreement: Yes Rehab Potential: Fair Time/GCodes Start Time: 09:15 Stop Time: 10:00 Total Time Billed (hr/min): 45 Billed Treatment Time 1 visit-EX 3 (45 min) ROBERT MCGRAW Jan 08, 2018 09:57
--- NOTE | 2018-01-08 12:02 | Physical Therapy Daily Note ---
PT Daily Note-Current Subjective Patient in recliner pre tx, agrees to PT, no complaints of pain. Appearance Patient in recliner post tx, has nurse call, phone, tray, all needs met. Mental Status Patient Orientation: Person, Unable to Assess Transfers Functional [place] Measure 0=Not Assessed/NA 4=Minimal Assistance 1=Total Assistance 5=Supervision or Setup 2=Maximal Assistance 6=Modified [place] 3=Moderate Assistance 7=Complete IndependenceIRFPAI Quality Coding Scale 6 Independent with activity with or without an assistive device 5 Patient requires set up or clean up by helper. Patient completes activity by themselves 4 Supervision or touching assist (CGA). [place] provide cues , steadying assist 3 The helper provides less than half the effort to complete the activity 2 The helper provides more than half the effort to complete the activity 1 Dependent. The helper does all the effort to complete an activity 7 Patient refused to complete or attempt activity 9 The patient did not perform the activity before the current illness or injury 88 Not attempted due to Medical conditions or safety concerns Transfers (B, C, W/C) (FIM): 7 Sit to/from Stand: 7 Bed to/from Chair: 7 Gait Training Gait (FIM): 5 Distance: 2000', 3000' Gait Level of Assist: 5 Gait Persons Needed: 1 Gait Assistive Device: None Patient only needs SBA because patient needs guidance on direction. Exercises sit to stand x10, stationary bicycle 15', leg press 100# x20, hamstring curls 48 # x20, knee extension 48# x20 Treatments transfers, ambulation, endurance, functional strengthening Assessment Current Status: Fair Progress patient is independent with mobility except he just needs to be directed on where to go PT Short Term Goals Short Term Goals Time Frame: Jan 11, 2018 Transfers (B,C,W/C) (FIM): 6 Gait (FIM): 5 Gait Distance Comment: 500' Gait Level of Assist: 5 Gait Assistive Device: None PT Asbestos Shingle Roofer Goals Asbestos Shingle Roofer Goals PT Fci Goals Time Frame: Jan 25, 2018 Transfers (B,C,W/C) (FIM): 7 Sit to Lying (QC): 6 Lying-Sitting on Side/Bed(QC): 6 Sit to Stand (QC): 6 Rollin Roll Left to Right (QC): 6 Chair/[id number] Xfer(QC): 6 Car Transfer (QC): 6 Gait (FIM): 7 Distance: 1000' Walk 10 feet (QC): 6 Walk 10ft-Uneven Surface(QC): 6 Walk 50ft with 2 Turns (QC): 6 Walk 150 ft (QC): 6 Gait Assistive Device: None Stairs (FIM): 6 # of Steps: 12 1 Step (curb) (QC): 6 4 Steps (QC): 6 12 Steps (QC): 6 Picking up an Object (QC): 6 PT Plan Problem List Problem List: Activity Tolerance, Functional Strength, Safety, Balance, Gait, Transfer Treatment/Plan Treatment Plan: Continue Plan of Care Treatment Plan: Bed Mobility, Education, Functional Activity [place], Functional Strength, Group Therapy, Gait, Safety, Therapeutic Exercise, Transfers Treatment Duration: Jan 25, 2018 Frequency: At least 5 of 7 days/Wk (IRF) Estimated Hrs Per Day: 1.5 hours per day Patient and/or Family Agrees t: Yes Safety Risks/Education Patient Education: Gait Training, Transfer Techniques, Correct Positioning, Safety Issues Teaching Recipient: Patient Teaching Methods: Demonstration, Discussion Response to Teaching: Reinforcement Needed Time/GCodes Time In: 1100 Time Out: 1200 Total Billed Treatment Time: 60 Total Billed Treatment 1 visit EX 30' GT 30' KIRSTIE ATKINS PT Jan 08, 2018 12:02
[2018-01-08] MEDS ORDERED: PYRI50TA15 PO (12:18)
--- NOTE | 2018-01-08 12:49 | Speech Therapy Daily Note ---
Speech Daily Progress Note Subjective Date Seen by Provider: Jan 08, 2018 Time Seen by Provider: 10:00 The patient was seated in recliner upon entrance. The patient greets the clinician appropriately and was agreeable to participation in language therapy. To note, the patient is able to complete automatic phrases with ease/accurately. Objective - Phrase Completion: The patient was able to complete phrase completion with 90 % accuracy and mild clinician cueing, including initial phoneme cues. - Black and White Picture Naming: The patient displayed fair accuracy with confrontational naming of pictures, demonstrating approximately 70% accuracy and moderate clinician cueing. Word-Finding strategies were introduced and demonstrated throughout this task, most often, resting and returning to a difficult item at a later time. With prompts to use this task, the patient was able to recall the word he was searching for throughout the exercise. - Automatic/Letter, Number Recognition: The patient displayed less than 50% accuracy with identification of numbers and letters. With initial phoneme cueing , the patient's accuracy significantly increased. The patient continues to demonstrate moderate expressive aphasia, however, does appear to communicate basic automatic phrases with ease. Assessment Assessment Current Status: Good Progress Treatment Plan Continue Plan of Care Communication Comprehension: 3 Expression: 2 Social Cognition Social Interaction: 6 Problem Solvin Memory: 4 Speech Short Term Goals Short Term Goals Short Term Goals 1. The patient will copy short phrases with mild clinician verbal prompting. 2. The patient will identify letters and numbers (1-10) with 80% accuracy and mild clinician verbal prompting. 3. The patient will state simple orientation information with 80% accuracy and mild clinician verbal prompting. Time Frame-STG: One Week Speech Detention Goals Maintenance Coordinator Goals 1. The patient will demonstrate improved expressive communication for increased safety and function with ADL's. Time Frame: Two Weeks Comprehension: 4 Expression: 3 Social Interaction: 6 Problem Solvin Memory: 4 Speech-Plan Treatment Plan Speech Therapy Treatment Plan: Continue Plan of Care Continue skilled speech pathology to target functional expressive communication. Treatment Duration: Jan 19, 2018 Frequency: 5 times per week Estimated Hrs Per Day: .5 hour per day Rehab Potential: Fair Safety Risks/Education Teaching Recipient: Patient Teaching Methods: Demonstration, Handout, Discussion Response to Teaching: Verbalize Understanding, Return Demonstration Education Topics Provided: Letter and Number Identification, Word Finding Strategies Discharge Recommendations Speech Therapy Outpatient Time Speech Therapy Time In: 10:00 Speech Therapy Time Out: 10:30 Total Billed Time: 30 Billed Treatment Time 1, CATHY LAMA Jan 08, 2018 12:49
--- NOTE | 2018-01-08 14:40 | Therapy Group Daily Note ---
Therapy Daily Group Note Other/Notes Each patient participated in group therapy in the common area of rehab. Each patient ambulated or was transported to the common area of rehab and seated in a [place]. Each patient had to introduce themselves, state where they were born and answer a question that required memory and critical thinking. The group was educated about adaptive equipment for showers, transfers, and dressing. Patients then participated in group lower extremity strengthening exercises. Each patient had to perform a car transfer and [place] performed it with independence. Then each patient performed a matching game that involved memory , upper extremity strength, and manual dexterity. Patients were encouraged to participate and interact with each other to problem solve. Then, each patient ambulated or was transported back to their room and placed in bed or chair with nurse call, phone, and tray. Start Time: 13:00 Stop Time: 14:20 Total Billed Treatment Time: 80 Total Billed Treatment 1 visit GRP 80' KIRSTIE ATKINS PT Jan 08, 2018 14:40
[2018-01-08 17:52] VITALS: BP 138/74
--- NOTE | 2018-01-08 19:40 | Consultation ---
History of Present Illness History of Present Illness Patient Consulted On(yosvany/time) 01/08/18 19:35 Time Seen by Provider: 19:35 History of Present Illness Patient is 62-year-old male who lives in [place]. Patient had difficulty in speech and confusing. Patient admitted to [facility] in [place] and had a CVA. Patient given a statin. Patient has expressive aphagia. Patient has a history of hypertension, hyperlipidemia, and type II diabetes. Patient had knee surgery. Patient states he forgot things. Patient speech is slow and has to think twice Allergies and Home Medications Allergies Coded Allergies: No Known Drug Allergies (Unverified , 01/04/18) Home Medications Amlodipine Besylate 10 Mg Tablet, 10 MG PO DAILY, (Reported) DO NOT TAKE WITH GRAPEFRUIT JUICE Aspirin 81 Mg Tab.chew, 81 MG PO DAILY, (Reported) Diclofenac Sodium 75 Mg Tablet.dr, 75 MG PO BID, (Reported) Metformin HCl 500 Mg Tab.er.24h, 500 MG PO DAILY, (Reported) Pyridoxine HCl 50 Mg Tablet, 50 MG PO DAILY, (Reported) Patient Home Medication List Home Medication List Reviewed: Yes Past Nqzqcya-[id number] Hx Patient Social History Alcohol Use: Denies Use Recreational Drug Use: No Smoking Status: Former Smoker Type Used: Cigarettes Former Smoker, Quit: Jul 07, 1997 Recent Foreign Travel: No Contact w/Someone Who Travel: No Recent Infectious Disease Expo: No Recent Hopitalizations: Yes Seasonal Allergies Seasonal Allergies: No Surgeries History of Surgeries: Yes Respiratory History of Respiratory Disorde: No Cardiovascular History of Cardiac Disorders: Yes Neurological History of Neurological Disord: Yes Reproductive System Sexually Transmitted Disease: No HIV/AIDS: No Genitourinary History of Genitourinary Disor: No Gastrointestinal History of Gastrointestinal Di: No Musculoskeletal History of Musculoskeletal Dis: No Endocrine History of Endocrine Disorders: Yes HEENT History of HEENT Disorders: No Loss of Vision: Denies Hearing Impairment: Hard of Hearing Cancer History of Cancer: No Psychosocial History of Psychiatric Problem: No Integumentary History of Skin or Integumenta: No Blood Transfusions History of Blood Disorders: No Family Medical History Family Medial History: Patient reports no known family medical history. Review of Systems-General Constitutional: weakness, other (Forgets things him a speech not fluid) EENTM: no symptoms reported Respiratory: no symptoms reported Gastrointestinal: no symptoms reported Genitourinary: no symptoms reported Physical Exam-General Problems Physical Exam Vital Signs Vital Signs - First Documented 01/04/18 16:47 Temp 97.0 Pulse 65 Resp 15 B/P (MAP) 121/69 (86) Pulse Ox 97 O2 Delivery Room Air Capillary Refill : General Appearance: WD/WN, no apparent distress, obese Eyes: Bilateral Eye Normal Inspection HEENT: normal ENT inspection Neck: full range of motion Respiratory: lungs clear, normal breath sounds, no respiratory distress, no accessory muscle use Cardiovascular: regular rate, rhythm, no murmur Gastrointestinal: non tender, soft Assessment/Plan Assessment/Plan Admission Diagnosis/Plan CVA. Diabetes. Hypertension. Speech aphagia. Memory not good. Diabetes type II. Hyperlipidemia Clinical Quality Measures DVT/VTE Risk/Contraindication: Risk Factor Score Per Nursin RFS Level Per Nursing on Admit: 2=Moderate MARTHA DUMONT DO Jan 08, 2018 19:40
[2018-01-08] MEDS: ATORVASTATIN 40 MG (LIPITOR) TABLET PO SCH (21:04)
[2018-01-09] MEDS: metFORMIN 500 MG (GLUCOPHAGE) TAB PO SCH ×2 (06:48→16:22)
[2018-01-09] MEDS: IBUPROFEN 800 MG (MOTRIN) TAB PO SCH ×3 (06:48→17:18)
[2018-01-09 06:59] VITALS: BP 137/85
--- NOTE | 2018-01-09 07:02 | Occupational Ther Daily Note ---
OT Current Status-Daily Note Subjective Pt alert, standing in room. Pt agreed to therapy. No c/o pain. Pt stated he is ready to get home and relax. Mental Status/Objective Patient Orientation: Person, Place, Time, Situation Functional [place] Measure 0=Not Assessed/NA 4=Minimal Assistance 1=Total Assistance 5=Supervision or Setup 2=Maximal Assistance 6=Modified [place] 3=Moderate Assistance 7=Complete [place] ADL-Treatment Functional [place] Measure 0=Not Assessed/NA 4=Minimal Assistance 1=Total Assistance 5=Supervision or Setup 2=Maximal Assistance 6=Modified [place] 3=Moderate Assistance 7=Complete IndependenceIRFPAI Quality Coding Scale 6 Independent with activity with or without an assistive device 5 Patient requires set up or clean up by helper. Patient completes activity by themselves 4 Supervision or touching assist (CGA). [place] provide cues , steadying assist 3 The helper provides less than half the effort to complete the activity 2 The helper provides more than half the effort to complete the activity 1 Dependent. The helper does all the effort to complete an activity 7 Patient refused to complete or attempt activity 9 The patient did not perform the activity before the current illness or injury 88 Not attempted due to Medical conditions or safety concerns Eating (FIM): 7 (Pt able to open packages/containers then use regular utensils to feed self and cut food.) Eating (QC): 6 Grooming (FIM): 7 (Standing at sink, pt is able to complete all grooming by self.) Oral Hygiene (QC): 6 Bathing (FIM): 6 (Using hand held shower and grabbars, pt is able to complete by self.) Bathing Location: L Arm, R Arm, L Upper Leg, R Upper Leg, L Lower Leg ( including foot), R Lower Leg (including foot), Chest, Abdomen, Buttocks, Perineal Area Shower/Bathe Self (QC): 6 Upper Body (FIM): 7 (Pt retrieves clothing and is able to don/doff by self.) Upper Body Dressing (QC): 6 Lower Body Dressing (FIM): 7 (Pt able to retrieve clothing and don/doff by self.) Lower Body Dressing (QC): 6 On/Off Footwear (QC): 6 Toileting (FIM): 7 (Pt complete hygiene and manipulates clothing by self.) Toileting Hygiene (QC): 6 Transfers (B, C, W/C) (FIM): 7 Toilet/Commode Transfer (FIM): 7 (Pt able to complete by self.) Toilet Transfer (QC): 6 Shower Transfer(FIM): 6 (Using grabbars and shower bench, pt is able to complete by self.) Other Treatment Pt ambulated to therapy gym independently. 15 UE exercises completed with resistance and hand weights, 30 reps. Strengthening UE gross motor and fine motor for daily functional tasks. Pt tolerated all exercises well. After therapy, pt up ad kenya in room. Call light/phone in reach. All needs met in room. OT Short Term Goals Short Term Goals Transfers (B,C,W/C) (FIM): 6 1=Demonstrate adherence to instructed precautions during ADL tasks. 2=Patient will verbalize/demonstrate understanding of assistive devices/ modifications for ADL. 3=Patient will improve strength/tolerance for activity to enable patient to perform ADL's. OT Penitentiary Goals Manufacturing Engineer [employer]otive Goals Time Frame: Jan 18, 2018 Eating (FIM): 7 Eating (QC): 6 Groomin Oral Hygiene (QC): 6 Bathing(FIM): 6 Shower/Bathe Self (QC): 6 Upper Body Dressing(FIM): 7 Upper Body Dressing (QC): 6 Lower Body Dressing(FIM): 6 Lower Body Dressing (QC): 6 On/Off Footwear (QC): 6 Toileting(FIM): 7 Toileting Hygiene (QC): 6 Toilet/Commode Transfer(FIM): 7 Toilet/Commode Transfer (QC): 6 Shower Transfer(FIM): 6 Comprehension(FIM): 4 Expression (FIM): 3 Social Interaction(FIM): 6 Problem Solving(FIM): 4 Memory(FIM): 4 Additional Goals: 2-Verbalize Understanding, 3-ImproveStrength/[place] 1=Demonstrate adherence to instructed precautions during ADL tasks. 2=Patient will verbalize/demonstrate understanding of assistive devices/ modifications for ADL. 3=Patient will improve strength/tolerance for activity to enable patient to perform ADL's. OT Education/Plan Discharge Recommendations Plan/Recommendations: Continue POC Treatment Plan/Plan of Care Patient would benefit from OT for education, treatment and training to promote independence in ADL's, mobility, safety and/or upper extremity function for ADL' s. Plan of Care: ADL Retraining, Functional Mobility, Group Exercise/Act as Ind, UE Funct Exercise/Act Treatment Duration: Jan 18, 2018 Frequency: At least 5 of 7 days/Wk (IRF) Estimated Hrs Per Day: 1.5 hours per day Agreement: Yes Rehab Potential: Fair Time/GCodes Start Time: 06:50 Stop Time: 08:05 Total Time Billed (hr/min): 75 Billed Treatment Time 1 visit-ADL 3 (45 min) EX 2 (30 min) ROBERT MCGRAW Jan 09, 2018 07:02
--- NOTE | 2018-01-09 08:22 | Progress Note (SOAP) ---
Subjective Time Seen by Provider: 08:20 Subjective/Events-last exam CVA. Patient's thought process is slow. Patient lost his memory. Patient denies Objective Exam Vital Signs Date Time Temp Pulse Resp B/P (MAP) Pulse Ox O2 Delivery O2 Flow Rate FiO2 01/09/18 06:59 97.5 76 20 137/85 (102) Room Air 01/08/18 17:52 98.0 66 16 138/74 (95) 97 Room Air I & O 01/09/18 07:00 Intake Total 1325 ml Balance 1325 ml Capillary Refill : General Appearance: No Apparent Distress, WD/WN Results Lab Laboratory Tests 01/08/18 16:23: Glucometer 121H 01/09/18 06:21: Glucometer 116H Assessment/Plan Assessment/Plan Assess & Plan/Chief Complaint CVA. Diabetes. Hypertension. Speech aphagia. Memory not good. Diabetes type II. Hyperlipidemia. . 01/09/18. CVA. Diabetes. Speech problem. Blood processes not good. Patient states he forgot. Diabetes under control. Hyperlipidemia Clinical Quality Measures DVT/VTE Risk/Contraindication: Risk Factor Score Per Nursin RFS Level Per Nursing on Admit: 2=Moderate MARTHA DUMONT DO Jan 09, 2018 08:22
--- NOTE | 2018-01-09 11:48 | Physical Therapy Daily Note ---
PT Daily Note-Current Subjective Patient is in recliner pre tx, reluctantly agrees to PT to perform FIM testing before discharge. No complaints of pain. Appearance Patient in recliner post tx with nurse call, phone, tray, all needs met. Mental Status Patient Orientation: Person, Unable to Assess Transfers Functional [place] Measure 0=Not Assessed/NA 4=Minimal Assistance 1=Total Assistance 5=Supervision or Setup 2=Maximal Assistance 6=Modified [place] 3=Moderate Assistance 7=Complete IndependenceIRFPAI Quality Coding Scale 6 Independent with activity with or without an assistive device 5 Patient requires set up or clean up by helper. Patient completes activity by themselves 4 Supervision or touching assist (CGA). [place] provide cues , steadying assist 3 The helper provides less than half the effort to complete the activity 2 The helper provides more than half the effort to complete the activity 1 Dependent. The helper does all the effort to complete an activity 7 Patient refused to complete or attempt activity 9 The patient did not perform the activity before the current illness or injury 88 Not attempted due to Medical conditions or safety concerns Transfers (B, C, W/C) (FIM): 7 Scootin Rollin Roll Left to Right (QC): 6 Supine to/from Sit: 7 Sit to/from Stand: 7 Sit to Lying (QC): 6 Sit to Stand (QC): 6 Chair/Glf-bf-Fajav Xfer(QC): 6 Bed to/from Chair: 7 Car Transfer (QC): 6 Patient performs bed mobility and transfers with independence. Gait Training Gait (FIM): 7 Distance: 2000' Walk 10 feet (QC): 6 Walk 50 ft with 2 Turns(QC): 6 Walk 150 ft (QC): 6 Walking 10ft/uneven surface-QC: 6 Gait Assistive Device: None Patient can ambulate 2000' without an assistive device with independence ( including 50' with at least 2 turns of 90 degrees and 10' over an uneven surface ). Wheelchair Training Does the Pt Use a Wheelchair?: No Stair Training Stair Training: Handrails/: 1 handrail Stairs (FIM): 6 #of Steps: 12 1 Step (curb) (QC): 6 4 Steps (QC): 6 12 Steps (QC): 6 Stairs: Pattern: Reciprocal Patient can go up and down 12 steps using 1 handrail with mod I. Balance Picking up an Object (QC): 6 Treatments bed mobility and transfers, ambulation, stairs Assessment Current Status: Good Progress Patient is independent with all mobility PT Short Term Goals Short Term Goals Time Frame: Jan 11, 2018 Transfers (B,C,W/C) (FIM): 6 Gait (FIM): 5 Gait Distance Comment: 500' Gait Level of Assist: 5 Gait Assistive Device: None PT Shelter Goals Dolly Operator Goals PT Shelter Goals Time Frame: Jan 25, 2018 Transfers (B,C,W/C) (FIM): 7 (met) Sit to Lying (QC): 6 (met) Lying-Sitting on Side/Bed(QC): 6 (met) Sit to Stand (QC): 6 (met) Rollin (met) Roll Left to Right (QC): 6 (met) Chair/Wij-bp-Dzprv Xfer(QC): 6 (met) Car Transfer (QC): 6 (met) Gait (FIM): 7 (met) Distance: 1000' Walk 10 feet (QC): 6 (met) Walk 10ft-Uneven Surface(QC): 6 (met) Walk 50ft with 2 Turns (QC): 6 (met) Walk 150 ft (QC): 6 (met) Gait Assistive Device: None Stairs (FIM): 6 (mt) # of Steps: 12 (met) 1 Step (curb) (QC): 6 (met) 4 Steps (QC): 6 (met) 12 Steps (QC): 6 (met) Picking up an Object (QC): 6 (met) PT Plan Treatment/Plan Treatment Plan: Discontinue PT, goals met Treatment Plan: Bed Mobility, Education, Functional Activity [place], Functional Strength, Group Therapy, Gait, Safety, Therapeutic Exercise, Transfers Patient is discharging later today from this facility. Treatment Duration: Jan 25, 2018 Frequency: At least 5 of 7 days/Wk (IRF) Estimated Hrs Per Day: 1.5 hours per day Patient and/or Family Agrees t: Yes Safety Risks/Education Patient Education: Gait Training, Safety Issues Teaching Recipient: Patient Teaching Methods: Demonstration, Discussion Response to Teaching: Verbalize Understanding, Return Demonstration Time/GCodes Time In: 1115 Time Out: 1130 Total Billed Treatment Time: 15 Total Billed Treatment 1 visit GT 15' KIRSTIE ATKINS PT Jan 09, 2018 11:48
[2018-01-09] MEDS ORDERED: LOSA25TA2 PO (12:07)
[2018-01-09] MEDS ORDERED: ATOR40TA PO (12:07)
[2018-01-09] MEDS ORDERED: METF500T4 PO ×3 (12:07→13:19)
--- NOTE | 2018-01-09 13:57 | Speech Therapy Daily Note ---
Speech Daily Progress Note Subjective Date Seen by Provider: Jan 09, 2018 Time Seen by Provider: 09:15 The patient was seated in the recliner upon entrance. The patient greeted the clinician and was agreeable to participation in the speech and language session. Objective Safety Problem Solving: The patient was provided pictures depicting common safety issues in a home environment. The patient was asked to identify the safety issue and provide an appropriate solution. The patient demonstrated high accuracy with this task, easily identifying the safety concern, however, unable to verbally describe the safety concern due to this expressive aphasia. The patient consistently pointed to the safety concern and shook his head "no." - Black and White Picture Naming: The patient displayed improved accuracy with confrontational naming of pictures, demonstrating approximately 80% accuracy and mildclinician cueing. Word-Finding strategies were reviewed and demonstrated throughout this task, most often, resting and returning to a difficult item at a later time. - Automatic/Letter, Number Recognition: The patient displayed approximately 60% accuracy with identification of letters and approximately 50% accuracy with identification of numbers (following a moderate delay). With initial phoneme cueing, the patient's accuracy significantly increased. Assessment Assessment Current Status: Fair Progress Treatment Plan Continue Plan of Care Communication Comprehension: 3 Expression: 2 Social Cognition Social Interaction: 6 Problem Solvin Memory: 4 Speech Short Term Goals Short Term Goals Short Term Goals 1. The patient will copy short phrases with mild clinician verbal prompting. 2. The patient will identify letters and numbers (1-10) with 80% accuracy and mild clinician verbal prompting. 3. The patient will state simple orientation information with 80% accuracy and mild clinician verbal prompting. Time Frame-STG: One Week Speech Cook Cold Meat Goals Custodial Goals 1. The patient will demonstrate improved expressive communication for increased safety and function with ADL's. Time Frame: Two Weeks Comprehension: 4 Expression: 3 Social Interaction: 6 Problem Solvin Memory: 4 Speech-Plan Treatment Plan Speech Therapy Treatment Plan: Continue Plan of Care Continue skilled speech pathology services for continued aid in improved expressive communication. Treatment Duration: Jan 19, 2018 Frequency: 5 times per week Estimated Hrs Per Day: .5 hour per day Rehab Potential: Fair Safety Risks/Education Teaching Recipient: Patient Teaching Methods: Discussion Response to Teaching: Verbalize Understanding Education Topics Provided: Plan of Care, Word Finding Strategies Time Speech Therapy Time In: 09:15 Speech Therapy Time Out: 09:45 Total Billed Time: 30 Billed Treatment Time 1, CATHY LAMA Jan 09, 2018 13:57
--- NOTE | 2018-01-09 14:17 | Therapy Team Discharge Summary ---
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 Upon admission (three days ago), the patient demonstrated moderate expressive aphasia. Skilled speech pathology services focused on word-finding strategies, safety problem solving, and confrontational naming (objects, pictures, numbers, and letters). The patient demonstrated fair accuracy throughout tasks, however, did not meet the goals placed by the speech pathology at admission due to his brief length of stay. At this time, outpatient speech services is highly recommended. PT Sort Supervisor Goals Sort Supervisor Goals PT [facility]cf Goals Time Frame: Jan 25, 2018 Transfers (B,C,W/C) (FIM): 7 (met) Roll Left to Right (QC): 6 (met) Sit to Lying (QC): 6 (met) Lying-Sitting on Side/Bed(QC): 6 (met) Sit to Stand (QC): 6 (met) Chair/Wvp-lg-Fhhvb Xfer(QC): 6 (met) Car Transfer (QC): 6 (met) Gait (FIM): 7 (met) Distance: 1000' Walk 10 feet (QC): 6 (met) Walk 10ft-Uneven Surface(QC): 6 (met) Walk 50ft with 2 Turns (QC): 6 (met) Walk 150 ft (QC): 6 (met) Gait Assistive Device: None Stairs (FIM): 6 (mt) # of Steps: 12 (met) 1 Step (curb) (QC): 6 (met) 4 Steps (QC): 6 (met) 12 Steps (QC): 6 (met) Picking up an Object (QC): 6 (met) OT Sort Supervisor Goals Sort Supervisor Goals Time Frame: Jan 18, 2018 Eating (FIM): 7 Eating (QC): 6 Oral Hygiene (QC): 6 Grooming(FIM): 7 Bathing(FIM): 6 Shower/Bathe Self (QC): 6 Upper Body Dressing(FIM): 7 Upper Body Dressing (QC): 6 Lower Body Dressing(FIM): 6 Lower Body Dressing (QC): 6 On/Off Footwear (QC): 6 Toileting(FIM): 7 Toileting Hygiene (QC): 6 Toilet/Commode Transfer(FIM): 7 Toilet/Commode Transfer (QC): 6 Shower Transfer(FIM): 6 Comprehension(FIM): 4 Expression (FIM): 3 Social Interaction(FIM): 6 Problem Solving(FIM): 4 Memory(FIM): 4 Additional Goals: 2-Verbalize Understanding, 3-ImproveStrength/[place] 1=Demonstrate adherence to instructed precautions during ADL tasks. 2=Patient will verbalize/demonstrate understanding of assistive devices/ modifications for ADL. 3=Patient will improve strength/tolerance for activity to enable patient to perform ADL's. Speech Sort Supervisor Goals Chcf Goals 1. The patient will demonstrate improved expressive communication for increased safety and function with ADL's. Time Frame: Two Weeks Comprehension: 4 (MET) Expression: 3 (NOT MET) Social Interaction: 6 (MET) Problem Solvin (MET) Memory: 4 (MET) CATHY MELGAR Jan 09, 2018 14:17
[2018-01-09] MEDS ORDERED: ASPI-999 PO (14:48)
--- NOTE | 2018-01-09 15:10 | PM & R (SOAP) Progress Note ---
Subjective Time Seen by Provider: 15:00 Subjective/Events-last exam Patient was seen in his room this afternoon Discussed case with RN Patient to be discharged today to home with exwife Patient will have f/u with [facility] in [facility].Accuchecks noted Patient Independent for mobility Speech still impaired Review of Systems Neurological: Change in speech Objective Exam Last Set of Vital Signs Vital Signs Date Time Temp Pulse Resp B/P (MAP) Pulse Ox O2 Delivery O2 Flow Rate FiO2 01/09/18 06:59 97.5 76 20 137/85 (102) Room Air 01/08/18 17:52 97 Capillary Refill : I&O Intake and Output 01/09/18 00:00 Intake Total 1645 ml Balance 1645 ml Intake Oral 1645 ml # Voids 8 # Bowel Movements 1 General: Alert, Cooperative, No Acute Distress HEENT: Atraumatic, PERRLA, EOMI, Mucous Memb Moist/Daniels Neck: Supple, No JVD Lungs: Clear to Auscultation Heart: Regular Rate Abdomen: Normal Bowel Sounds, Soft, No Tenderness Extremities: No Edema Neuro: Other (Expressive aphasia) Results Lab Laboratory Tests 01/06/18 16:20: Glucometer 134H 01/07/18 04:58: Glucometer 118H 01/07/18 16:12: Glucometer 135H 01/08/18 05:21: Glucometer 131H 01/08/18 16:23: Glucometer 121H 01/09/18 06:21: Glucometer 116H Assessment/Plan Assessment 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
--- NOTE | 2018-01-09 15:19 | Therapy Team Discharge Summary ---
Therapy Discharge Summary Discharge Recommendations Date of Discharge Therapy D/C Recommendations: Speech Therapy Outpatient Physical Therapy Patient came to rehab after a CVA. Upon evaluation patient performed all bed mobility and transfers with SBA including a car transfer, ambulated 200' without an assistive device with SBA, and went up and down 4 steps with CGA. Patient has been performing bed mobility and transfer training, balance and endurance training, functional strengthening, stair training, gait training, and education. 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 Now, patient performs bed mobility and transfers with mod I, car transfer with mod I, ambulates 2000' without an assistive device with mod I ( including 50' with at least 2 turns of 90 degrees and 10' over an uneven surface ), and can go up and down 12 steps using 1 handrail with mod I. Patient is being discharged from this facility today and will be discharged from PT at this time. Occupational Therapy Dependent Transfers, Impaired I ADL's PT Shelter Goals Picker And Sorter Load And Unload Goals PT Picker And Sorter Load And Unload Goals Time Frame: Jan 25, 2018 Transfers (B,C,W/C) (FIM): 7 (met) Roll Left to Right (QC): 6 (met) Sit to Lying (QC): 6 (met) Lying-Sitting on Side/Bed(QC): 6 (met) Sit to Stand (QC): 6 (met) Chair/Sda-zu-Nxtyh Xfer(QC): 6 (met) Car Transfer (QC): 6 (met) Gait (FIM): 7 (met) Distance: 1000' Walk 10 feet (QC): 6 (met) Walk 10ft-Uneven Surface(QC): 6 (met) Walk 50ft with 2 Turns (QC): 6 (met) Walk 150 ft (QC): 6 (met) Gait Assistive Device: None Stairs (FIM): 6 (mt) # of Steps: 12 (met) 1 Step (curb) (QC): 6 (met) 4 Steps (QC): 6 (met) 12 Steps (QC): 6 (met) Picking up an Object (QC): 6 (met) OT Picker And Sorter Load And Unload Goals Shelter Goals Time Frame: Jan 18, 2018 Eating (FIM): 7 Eating (QC): 6 Oral Hygiene (QC): 6 Grooming(FIM): 7 Bathing(FIM): 6 Shower/Bathe Self (QC): 6 Upper Body Dressing(FIM): 7 Upper Body Dressing (QC): 6 Lower Body Dressing(FIM): 6 Lower Body Dressing (QC): 6 On/Off Footwear (QC): 6 Toileting(FIM): 7 Toileting Hygiene (QC): 6 Toilet/Commode Transfer(FIM): 7 Toilet/Commode Transfer (QC): 6 Shower Transfer(FIM): 6 Comprehension(FIM): 4 (MET) Expression (FIM): 3 (NOT MET) Social Interaction(FIM): 6 (MET) Problem Solving(FIM): 4 (MET) Memory(FIM): 4 (MET) Additional Goals: 2-Verbalize Understanding, 3-ImproveStrength/Duane 1=Demonstrate adherence to instructed precautions during ADL tasks. 2=Patient will verbalize/demonstrate understanding of assistive devices/ modifications for ADL. 3=Patient will improve strength/tolerance for activity to enable patient to perform ADL's. Speech Picker And Sorter Load And Unload Goals Shelter Goals 1. The patient will demonstrate improved expressive communication for increased safety and function with ADL's. Time Frame: Two Weeks Comprehension: 4 (MET) Expression: 3 (NOT MET) Social Interaction: 6 (MET) Problem Solvin (MET) Memory: 4 (MET) KIRSTIE ATKINS PT Jan 09, 2018 15:19
--- NOTE | 2018-01-09 15:27 | Individualized Plan of Care ---
Individualized Plan of Care Rehab Nursing IPOC Order Admission Date Jan 04, 2018 at 13:55 Current Orders Orders Admission Order(Inpt,Obs,Sdc) (01/04/18 14:57) Vital Signs: Routine (Ord) 08,16,00 (01/04/18 14:57) Sequential Compression Device 08,20 (01/04/18 14:57) Test Engineering Intern-Inpt Rehab (01/04/18 14:57) Rehab Nursing Orders-Ipoc (01/04/18 14:57) Physical Therapy Rehab Orders (01/04/18 14:57) Occupational Therapy Rehab Ord (01/04/18 14:57) Speech Therapy Rehab Orders (01/04/18 14:57) Cho 60g/M 1snack (16-2000 Kelvin) (01/04/18 Dinner) Turn And Reposition Q2HR (01/04/18 14:57) Intake & Output 06,14,22 (01/04/18 14:57) Weekly Weight (Lbs) WEEK (01/04/18 14:57) Atorvastatin Tablet (Lipitor) (01/04/18 21:00) Hydrocodone/Apap 5/325 Tablet (Lortab 5 (01/04/18 15:15) Ibuprofen Tablet (Motrin Tablet) (01/04/18 18:00) Metformin Tablet (Glucophage Tablet) (01/04/18 17:00) Ondansetron Oral Dissolve Tab (Zofran (01/04/18 15:15) Cbc No Diff (01/05/18 06:00) Comprehensive Metabolic Panel (01/05/18 06:00) Accucheck Bid DBID (01/04/18 15:05) Admission Arrival Bed Request (01/04/18 15:39) Patient Visit (01/04/18 ) Pt Eval Low Complexity (01/04/18 ) Speech Therapy Orders (01/04/18 16:39) Ambulate TID (01/04/18 16:39) Sequential Compression Device 08,20 (01/04/18 16:39) Dvt/Vte Risk - Notifiy Physici 08 (01/04/18 16:39) Influenza Trivalent 5940-1906 (Afluria (01/04/18 16:45) Pneumococcal Vaccine (Pnu-Imune 23 Vacci (01/04/18 16:45) Patient Visit (01/05/18 ) Speech Sound Lang Comp (01/05/18 ) Patient Visit (01/05/18 ) Gait Training, Ea 15 Min (01/05/18 ) Ex Neuromuscular, Ea 15 Min (01/05/18 ) Therapeutic, Group (01/05/18 ) Patient Visit (01/05/18 ) Patient Visit (01/06/18 ) Patient Visit (01/08/18 ) Treat. Speech/Lang/Voice (01/08/18 ) Consult Physician (01/08/18 10:57) Patient Visit (01/08/18 ) Gait Training, Ea 15 Min (01/08/18 ) Exercise Therap, Ea 15 Min (01/08/18 ) Therapeutic, Group (01/08/18 ) Attending Discharge (01/09/18 12:16) Patient Visit (01/09/18 ) Treat. Speech/Lang/Voice (01/09/18 ) Rehab Nursing Orders: Diseage Management, Edu in Press Rel Techn, Hydration Management, Nutrition Management, Pain Management Other Nursing Orders: Monitor for urinary retention and constipation PT IPOC Problem List: Activity Tolerance, Functional Strength, Safety, Balance, Gait, Transfer Treatment Plan: Continue Plan of Care Bed Mobility, Education, Functional Activity Duane, Functional Strength, Group Therapy, Gait, Safety, Therapeutic Exercise, Transfers Treatment Duration: Jan 25, 2018 Frequency: At least 5 of 7 days/Wk (IRF) Estimated Hrs Per Day: 1.5 hours per day OT IPOC Problems: Dependent Transfers, Impaired I ADL's OT Treatment, Training and Edu: Yes Plan of Care: ADL Retraining, Functional Mobility, Group Exercise/Act as Ind, UE Funct Exercise/Act Treatment Duration: Jan 18, 2018 Frequency: At least 5 of 7 days/Wk (IRF) Estimated Hrs Per Day: 1.[address] IPOC Speech Therapy Treatment Plan: Continue Plan of Care Treatment Duration: Jan 19, 2018 Frequency: 5 times per week Estimated Hrs Per Day: .5 hour per day Test Engineering Intern/Case Mgmt Test Engineering Intern/Case Managemen: Discharge Planning, Patient/Family Counseling Physician IPOC Medical Issues being managed closely and that require the 24 hour availability of a physician:HTN DM IGC CODE 01.2 Etiologic DX Left Parietal CVA with resulting aphasia Medical Issues: DVT Prophylaxis, Falls Precautions, Infection Protection, Other (List) (as per above) Brief Synthesis of Preadmission Screen, Post-Admission Evaluation, and Therapy Evaluations: 62 yo male who sustained a Left CVA with predominantly speech deficits admiied to IRU for stroke rehab PMH HLP DM HTN Lives alone in [place] but patients exwife here to pick him up Patient will have f/u with [facility] in [facility] with outpatient ST Patient currently Independent for Mobility Medical Prognosis: good Anticipated Length of Stay: 3--[address] on outpatient basis in order to improve communication skills to facilitate return to Independent living Anticipated discharge destinat: Home woth Exwife with f/u as per above SOFI CONNELLY MD Jan 09, 2018 15:27
[2018-01-09 17:34] VITALS: BP 130/77
[2018-01-09] MEDS: ATORVASTATIN 40 MG (LIPITOR) TABLET PO SCH (18:57)
[2018-01-09 19:02] VITALS: BP 130/77
--- NOTE | 2018-01-10 09:24 | Therapy Team Discharge Summary ---
Therapy Discharge Summary Discharge Recommendations Date of Discharge Jan 09, 2018 at 19:00 Therapy D/C Recommendations: Speech Therapy Outpatient Occupational Therapy Pt admitted to ARU following acute hospitalization for CVA. On admission pt required set up for bathing, SBA for toilet transfer, and modified independence with grooming and dressing. Skilled OT intervention focused on ADL training, transfers, strengthening, and safety education. Pt made good progress with therapy and by discharge is completing bathing and shower transfer with modified independence and other basic ADLs independently. Pt met all OT LTG. Pt discharged from facility, D/C ARU OT at this time. PT Halfway Goals Halfway Goals PT Station Usher Goals Time Frame: Jan 25, 2018 Transfers (B,C,W/C) (FIM): 7 (met) Roll Left to Right (QC): 6 (met) Sit to Lying (QC): 6 (met) Lying-Sitting on Side/Bed(QC): 6 (met) Sit to Stand (QC): 6 (met) Chair/Lwy-dy-Xokbh Xfer(QC): 6 (met) Car Transfer (QC): 6 (met) Gait (FIM): 7 (met) Distance: 1000' Walk 10 feet (QC): 6 (met) Walk 10ft-Uneven Surface(QC): 6 (met) Walk 50ft with 2 Turns (QC): 6 (met) Walk 150 ft (QC): 6 (met) Gait Assistive Device: None Stairs (FIM): 6 (mt) # of Steps: 12 (met) 1 Step (curb) (QC): 6 (met) 4 Steps (QC): 6 (met) 12 Steps (QC): 6 (met) Picking up an Object (QC): 6 (met) OT Station Usher Goals Station Usher Goals Time Frame: Jan 18, 2018 Eating (FIM): 7 Eating (QC): 6 Oral Hygiene (QC): 6 Grooming(FIM): 7 Bathing(FIM): 6 Shower/Bathe Self (QC): 6 Upper Body Dressing(FIM): 7 Upper Body Dressing (QC): 6 Lower Body Dressing(FIM): 6 Lower Body Dressing (QC): 6 On/Off Footwear (QC): 6 Toileting(FIM): 7 Toileting Hygiene (QC): 6 Toilet/Commode Transfer(FIM): 7 Toilet/Commode Transfer (QC): 6 Shower Transfer(FIM): 6 Comprehension(FIM): 4 (MET) Expression (FIM): 3 (NOT MET) Social Interaction(FIM): 6 (MET) Problem Solving(FIM): 4 (MET) Memory(FIM): 4 (MET) Additional Goals: 2-Verbalize Understanding, 3-ImproveStrength/Duane 1=Demonstrate adherence to instructed precautions during ADL tasks. 2=Patient will verbalize/demonstrate understanding of assistive devices/ modifications for ADL. 3=Patient will improve strength/tolerance for activity to enable patient to perform ADL's. Speech Station Usher Goals Halfway Goals 1. The patient will demonstrate improved expressive communication for increased safety and function with ADL's. Time Frame: Two Weeks Comprehension: 4 (MET) Expression: 3 (NOT MET) Social Interaction: 6 (MET) Problem Solvin (MET) Memory: 4 (MET) MICHELLE BENAVIDEZ OT Jan 10, 2018 09:24
== END 2018-01-09 19:00 | disposition home or self-care (01) | DRG 57 ==
PROVIDERS: ADMIT Physical Medicine & Rehabilitation; ATTEND Physical Medicine & Rehabilitation
DX: I69.320 Aphasia following cerebral infarction (principal); F80.1 Expressive language disorder; I69.398 Other sequelae of cerebral infarction; R26.81 Unsteadiness on feet; I10 Essential (primary) hypertension; E78.5 Hyperlipidemia, unspecified; E11.9 Type 2 diabetes mellitus without complications; Z79.84 Long term (current) use of oral hypoglycemic drugs; R41.3 Other amnesia
CPT/HCPCS: 36415; 80053; 82962; 85027